=== PATIENT | female | born 1990 | race Caucasian/White ===

== ENCOUNTER 2017-01-25 19:16 | Emergency (ER) | payer MEDICAID ==
[2017-01-25 19:19] VITALS: BMI 25.7
[2017-01-25 19:24] VITALS: BP 88/58; PULSE 97; RESP 19; TEMP 99.2; O2SAT 97
[2017-01-25] MEDS ORDERED: Sodium Chloride 0.9% 1,000 ML IV STA (19:51)
--- NOTE | 2017-01-25 20:03 | ED PDOC ---
Arrival/HPI - General Historian: Patient - History of Present Illness Time/Duration: Other (48 hr.) Symptom Onset: Gradual Symptom Course: Worsening Quality: Aching (headache. ) Severity Level: Mild Context: Home <Josselyn Fox - Last Filed: 01/25/17 22:11> <VitalyglennaJosé Salena - Last Filed: 01/28/17 17:42> - General Chief Complaint: Abnormal Skin Integrity Time Seen by Provider: 01/25/17 19:25 - History of Present Illness Narrative History of Present Illness (Text): 01/25/17 19:56 Patient is a 26 y/o with no significant PMH s/p on December 05, breast feeding and pumping presenting with left breast lump, and pain. Patient states she noticed these symptoms yesterday. Patient reports her nipple is also cracked. Denies bloody discharge. Furthermore, patient states she has been experiencing headache for 2 days, took Tylenol yesterday with some relief. Patient states she had epidural for her delivery, and since then she's been having headache on/off. Patient admits to lightheadedness mostly when she stands up from seating position. Patient denies fever, chills, reports she had nausea yesterday, and had no appetite, thus have not been eating/drinking well. Patient states the nausea has resolved. Denies cp , sob, abdominal pain, dysuria or cough. Denies sick contact. Patient is currently menstruating. (Josselyn Fox) Past Medical History - Provider Review Nursing Documentation Reviewed: Yes - Travel History Have you recently traveled outside [place] w/in the past 3 mons?: No - Past History Past History: Non-Contributing - Infectious Disease Hx of Infectious Diseases: None - Tetanus Immunization Tetanus Immunization: Unknown - Past Medical History Past Medical History: Non-Contributing - Cardiac Hx Cardiac Disorders: No - Pulmonary Hx Respiratory Disorders: Yes Hx Asthma: Yes - Neurological Hx Neurological Disorder: No - HEENT Hx HEENT Disorder: No - Renal Hx Renal Disorder: No - Endocrine/Metabolic Hx Endocrine Disorders: No - Hematological/Oncological Hx Blood Disorders: No - Integumentary Hx Dermatological Disorder: No - Musculoskeletal/Rheumatological Hx Musculoskeletal Disorders: No - Gastrointestinal Hx Gastrointestinal Disorders: No - Genitourinary/Gynecological Hx Genitourinary Disorders: No - Psychiatric Hx Psychophysiologic Disorder: No Hx Substance Use: No - Surgical History Other/Comment: 2 MONTHS AGO - Anesthesia Hx Anesthesia: Yes Hx Anesthesia Reactions: No Hx Malignant Hyperthermia: No - Suicidal Assessment Feels Threatened In Home Enviroment: No <Parris Foxla - Last Filed: 01/25/17 22:11> Family/Social History - Physician Review Nursing Documentation Reviewed: Yes Family/Social History: No Known Family HX Smoking Status: Former Smoker Hx Alcohol Use: No Hx Substance Use: No Hx Substance Use Treatment: No <Josselyn Fox - Last Filed: 01/25/17 22:11> Allergies/Home Meds <Josselyn Fox - Last Filed: 01/25/17 22:11> <José Dean - Last Filed: 01/28/17 17:42> Allergies/Adverse Reactions: Allergies latex Allergy (Verified 01/25/17 19:19) URTICARIA Review of Systems - Review of Systems Constitutional: absent: Fevers Eyes: absent: Vision Changes, Photophobia Respiratory: absent: SOB, Cough, Sputum, Wheezing Cardiovascular: absent: Chest Pain, Palpitations, Edema, Syncope Gastrointestinal: Appetite Changes. absent: Abdominal Pain, Constipation, Diarrhea, Nausea, Vomiting Genitourinary Female: absent: Dysuria, Frequency Musculoskeletal: Other (headache. ). absent: Back Pain, Neck Pain Skin: Normal, Rash Neurological: Headache, Dizziness, Other (lightheadedness.). absent: Focal Weakness Endocrine: Normal Hemo/Lymphatic: Normal Psychiatric: Normal <Parris Foxla - Last Filed: 01/25/17 22:11> Physical Exam Vital Signs Reviewed: Yes Temperature: Afebrile Blood Pressure: Hypotensive Pulse: Regular Respiratory Rate: Normal Appearance: Positive for: Well-Appearing Pain Distress: None Mental Status: Positive for: Alert and Oriented X 3 - Systems Exam Head: Present: Atraumatic, Normocephalic Pupils: Present: PERRL Extroacular Muscles: Present: EOMI Conjunctiva: Present: Other (pale). No: Icteric Mouth: Present: Dry Neck: Present: Normal Range of Motion. No: Meningeal Signs, Paraspinal Tenderness, Lymphadenopathy Respiratory/Chest: Present: Clear to Auscultation, Good Air Exchange. No: Respiratory Distress, Accessory Muscle Use, Wheezes, Rales, Retracting, Rhonchi , Tachypneic Cardiovascular: Present: Regular Rate and Rhythm, Normal S1, S2. No: Murmurs Abdomen: Present: Normal Bowel Sounds. No: Tenderness, Distention Breast/Axillary: Present: Masses (breast at 8 oclock, mobile, tender 0.5 cm mass ), Symmetrical, Tender to Palpation (left breast at 8 oclock.). No: Discoloration, Erythema, Nipple Discharge, Swelling Back: Present: Other (scars ). No: Midline Tenderness Upper Extremity: Present: Normal Inspection. No: Cyanosis, Edema Lower Extremity: Present: Normal Inspection. No: Edema Neurological: Present: GCS=15, CN II-XII Intact, Speech Normal Skin: Present: Warm, Dry, Normal Color, Abrasion (in the back. ). No: Rashes Psychiatric: Present: Alert, Oriented x 3, Normal Insight, Normal Concentration <Josselyn Fox - Last Filed: 01/25/17 22:11> - Systems Exam Breast/Axillary: Present: Other (Belqes scribe present) <José Dean P - Last Filed: 01/28/17 17:42> Vital Signs Temp Pulse Resp BP Pulse Ox 01/25/17 19:23 99.2 F 97 H 19 88/58 L 97 Medical Decision Making Re-evaluation Time: 21:05 Reassessment Condition: Re-examined - Lab Interpretations I have reviewed the lab results: Yes <Josselyn Fox - Last Filed: 01/25/17 22:11> - Lab Interpretations I have reviewed the lab results: Yes <José Dean P - Last Filed: 01/28/17 17:42> ED Course and Treatment: 01/25/17 20:11 26 y/o s/p on 12/05/16 presenting with left breast pain and lump. Patient also has lightheadedness with hypotension. Differentials: orthostatic hypotension, UTI, anemia, sirs/sepsis. Orthostatic vital signs: Lying down: SBP 110/56 Seating 106/53 Standing 83/36 Left breast exam with no signs of mastitis, small plugged breast milk duct. Plan: POC CBC CMP, UA. Tylenol for headache NS bolus and reevaluate. Discussed with Dr Dean. 01/25/17 21:40 Patient reports the Tylenol didn't help, getting toradol ivp. (Josselyn Fox) Patient Seen With Resident: In agreement with resident note which contains more details about the patient. Patient was seen and evaluated with resident. Came up with plan and treatment together. The pts only complaint to me was her breast pain. She did not mention any headache to me. The pt has no erythema, warmth, induration, or fluctuance over the affected breast. there is an approx 1cm palpable tender mass likely a blocked duct. adv continued breast feeding, warm compress, return if worse. unclear why "short of breath" was recorded in vitals section. the pt for me is very well-appearing without any sob. (José Dean) - Lab Interpretations Microbiology Results: Microbiology Results 01/25/17 20:12 Urine,Clean Catch Urine Culture - Final 50-100,000 CFU/ML. MULTIPLE SPECIES. SUGGEST REPEAT SPECIMEM. Lab Results: 01/25/17 20:18 01/25/17 20:18 Lab Results 01/25/17 20:18: Sodium 137, Potassium 3.7, Chloride 101, Carbon Dioxide 28, Anion Gap 12, BUN 15, Creatinine 0.8, Est GFR ( Amer) > 60, Est GFR (Non- Af Amer) > 60, Random Glucose 106, Calcium 9.4, Total Bilirubin 0.4, AST 54 H, ALT 71 H, Alkaline Phosphatase 98, Total Protein 7.6, Albumin 4.3, Globulin 3.3 , Albumin/Globulin Ratio 1.3 01/25/17 20:18: Urine Color Christina, Urine Appearance Clear, Urine pH 5.5, Ur Specific [place] >= 1.030, Urine Protein 30 H, Urine Glucose (UA) Negative, Urine Ketones Negative, Urine Blood Large H, Urine Nitrate Negative, Urine Bilirubin Negative, Urine Urobilinogen 1.0 H, Ur Leukocyte Esterase Trace H, Urine RBC 25 - 30, Urine WBC 5 - 10, Ur Epithelial Cells 6 - 8, Amorphous Sediment Trace, Urine Bacteria Trace 01/25/17 20:18: WBC 7.3 D, RBC 4.01, Hgb 12.2, Hct 36.2, MCV 90.3, MCH 30.4, MCHC 33.7, RDW 14.0, Plt Count 193, MPV 10.0, Gran % 66.8, Lymph % (Auto) 21.0 L , [place] % (Auto) 10.2 H, Eos % (Auto) 1.9, Baso % (Auto) 0.1, Gran # 4.87, Lymph # 1.5, Otero # 0.7 H, Eos # 0.1, Baso # 0.01 - Medication Orders Current Medication Orders: Discontinued Medications Acetaminophen (Tylenol 325mg Tab) 650 mg PO STAT STA Stop: 01/25/17 19:52 Last Admin: 01/25/17 20:20 Dose: 650 mg Sodium Chloride (Sodium Chloride 0.9%) 1,000 mls @ 999 mls/hr IV .Q1H1M STA Stop: 01/25/17 20:51 Last Admin: 01/25/17 20:20 Dose: 999 mls/hr Ketorolac Tromethamine (Toradol) 10 mg IVP STAT STA Stop: 01/25/17 21:33 Last Admin: 01/25/17 22:00 Dose: 15 mg <Josselyn Fox - Last Filed: 01/25/17 22:11> - Scribe Statement The provider has reviewed the documentation as recorded by the Scribe <José Dean - Last Filed: 01/28/17 17:42> - Scribe Statement Jp Marx Provider Scribe Attestation: All medical record entries made by the Scribe were at my direction and personally dictated by me. I have reviewed the chart and agree that the record accurately reflects my personal performance of the history, physical exam, medical decision making, and the department course for this patient. I have also personally directed, reviewed, and agree with the discharge instructions and disposition. (José Dean) Disposition/Present on Arrival - Present on Arrival Any Indicators Present on Arrival: No History of DVT/PE: No History of Uncontrolled Diabetes: No Urinary Catheter: No History of Decub. Ulcer: No History Surgical Site Infection Following: None - Disposition Have Diagnosis and Disposition been Completed?: Yes Disposition Time: 21:35 Patient Plan: Discharge <Josselyn Fox - Last Filed: 01/25/17 22:11> <José Dean - Last Filed: 01/28/17 17:42> - Disposition Diagnosis: Orthostatic hypotension, Headache, breast pain Disposition: HOME/ ROUTINE Condition: IMPROVED Discharge Instructions (ExitCare): and Nipple Soreness (ED), and Plugged Ducts (ED), Hypotension (ED) Additional Instructions: Drink lots of water throughout the day. Eat well balanced nutritious food. Can eat salty food to help with your blood pressure. When you get up from lying or seating position, stand or seat up, wait at list 2 minutes before standing up. Start breast feeding at the site where there is the clog. use heating pad, and massage the area. If you developed redness or if the pain gets worst, please come back to the emergency room.
[2017-01-25 20:28] LABS: ADD MANUAL DIFF? NO
[2017-01-25 20:32] LABS: BASO # 0.01 K/mm3 (0.0-2.0); BASO % 0.1 % (0.0-3.0); EOS # 0.1 (0.0-0.7); EOS % 1.9 % (1.5-5.0); GRAN # 4.87 (1.4-6.5); GRAN % 66.8 % (50.0-68.0); HEMATOCRIT 36.2 % (36.0-48.0); LYMPH # 1.5 (1.2-3.4); MEAN CELL VOLUME 90.3 fL (80.0-105.0); MEAN CORPUSCULAR HEMOGLOBIN 30.4 pg (25.0-35.0); MEAN CORPUSCULAR HGB CONC 33.7 g/dl (31.0-37.0); MONO # 0.7 (0.1-0.6); MONO % 10.2 % (1.0-6.0); PLATELET COUNT 193 10^3/uL (120.0-450.0); WHITE BLOOD COUNT 7.3 10^3/ul (4.5-11.0)
[2017-01-25 20:33] LABS: PH,URINE 5.5 (4.7-8.0); URINE APPEARANCE CLEAR (CLEAR); URINE BILIRUBIN NEGATIVE (NEGATIVE); URINE BLOOD LARGE (NEGATIVE); URINE COLOR AMBER (YELLOW); URINE GLUCOSE (UA) NEGATIVE (NEGATIVE); URINE KETONE NEGATIVE (NEGATIVE); URINE LEUKOCYTE ESTERASE TRACE Leu/uL (NEGATIVE); URINE PROTEIN 30 mg/dL (<30 mg/dL)
[2017-01-25 20:40] LABS: URINE AMORPHOUS SEDIMENT TRACE; URINE BACTERIA TRACE (NEG); URINE RBC 25 - 30 /hpf (0-2)
[2017-01-25 20:44] LABS: ALB/GLOB RATIO 1.3 (1.1-1.8); ALKALINE PHOSPHATASE 98 U/L (38-133); ALT/SGPT 71 U/L (7-56); AST/SGOT 54 U/L (15-39); BILIRUBIN,TOTAL 0.4 mg/dL (0.2-1.3); BLOOD UREA NITROGEN 15 mg/dL (7-21); CALCIUM 9.4 mg/dL (8.4-10.5); CARBON DIOXIDE 28 mmol/L (21-33); CHLORIDE 101 mmol/L (98-107); GFR AFRICAN-AMERICAN > 60; GLUCOSE,RANDOM 106 mg/dL (70-110); POTASSIUM 3.7 mmol/L (3.6-5.0); SODIUM 137 mmol/L (132-148); TOTAL PROTEIN 7.6 g/dL (5.8-8.3)
== END 2017-01-25 22:15 | disposition home or self-care (01) ==
LOC: ED 19:16
DX: O92.29 Other disorders of breast associated with pregnancy and the puerperium (principal); I95.1 Orthostatic hypotension; R51 Headache
CPT/HCPCS: 80053; 81001; 85025; 87086; 99282; J1885; J7040

== ENCOUNTER 2018-11-14 14:44 | Emergency (ER) | payer MEDICAID ==
[2018-11-14 15:00] VITALS: RESP 18
[2018-11-14 15:01] VITALS: BMI 20.9
[2018-11-14] MEDS ORDERED: Albuterol-Ipratrop 3 mg / 0.5 (3 ml) UD IH STA (15:13)
--- NOTE | 2018-11-14 15:19 | ED PDOC ---
Arrival/HPI - General Chief Complaint: ENT Problem Time Seen by Provider: 11/14/18 14:48 Historian: Patient - History of Present Illness Narrative History of Present Illness (Text): 11/14/18 15:20 28 yo F complaining of dry cough the past few days associated with chest tightness and asthma, states that she has been taking her albuterol nebulizer for her asthma with some relief, states that since yesterday morning she started losing her voice and feels that she has laryngitis. Otherwise she reports no fever, chills, shortness of breath, chest pain, nausea, vomiting, recent travel, recent sick contacts. PMD [place] Past Medical History - Past History Past History: Non-Contributing - Infectious Disease Hx of Infectious Diseases: None - Tetanus Immunization Tetanus Immunization: Unknown - Past Medical History Past Medical History: Non-Contributing - Cardiac Hx Cardiac Disorders: No - Pulmonary Hx Respiratory Disorders: Yes Hx Asthma: Yes - Neurological Hx Neurological Disorder: No - HEENT Hx HEENT Disorder: No - Renal Hx Renal Disorder: No - Endocrine/Metabolic Hx Endocrine Disorders: No - Hematological/Oncological Hx Blood Disorders: No - Integumentary Hx Dermatological Disorder: No - Musculoskeletal/Rheumatological Hx Musculoskeletal Disorders: No - Gastrointestinal Hx Gastrointestinal Disorders: No - Genitourinary/Gynecological Hx Genitourinary Disorders: No - Psychiatric Hx Psychophysiologic Disorder: No Hx Substance Use: No - Surgical History Other/Comment: 2 MONTHS AGO - Anesthesia Hx Anesthesia: Yes Hx Anesthesia Reactions: No Hx Malignant Hyperthermia: No - Suicidal Assessment Feels Threatened In Home Enviroment: No Family/Social History Family/Social History: No Known Family HX Smoking Status: Former Smoker Hx Alcohol Use: No Hx Substance Use: No Hx Substance Use Treatment: No Allergies/Home Meds Allergies/Adverse Reactions: Allergies latex Allergy (Verified 01/25/17 19:19) URTICARIA Review of Systems - Review of Systems Constitutional: absent: Fatigue, Fevers ENT: Sore Throat. absent: Rhinorrhea, Sinus Congestion Respiratory: Cough, Wheezing. absent: SOB Cardiovascular: absent: Chest Pain, Palpitations Gastrointestinal: absent: Abdominal Pain, Diarrhea, Nausea, Vomiting Skin: absent: Rash, Skin Lesions Neurological: absent: Headache, Dizziness Physical Exam Vital Signs Temp Pulse Resp BP Pulse Ox 11/14/18 15:00 97.9 F 78 18 128/78 99 Temperature: Afebrile Blood Pressure: Normal Pulse: Regular Respiratory Rate: Normal Appearance: Positive for: Well-Appearing, Non-Toxic, Comfortable Pain Distress: None Mental Status: Positive for: Alert and Oriented X 3 - Systems Exam Head: Present: Atraumatic, Normocephalic Pupils: Present: PERRL Extroacular Muscles: Present: EOMI Conjunctiva: Present: Normal Ears: Present: Normal, NORMAL TM Mouth: Present: Moist Mucous Membranes Pharnyx: Present: Normal. No: ERYTHEMA, EXUDATE Neck: Present: Normal Range of Motion. No: Meningeal Signs, Lymphadenopathy Respiratory/Chest: Present: Clear to Auscultation, Good Air Exchange. No: Respiratory Distress, Accessory Muscle Use Cardiovascular: Present: Regular Rate and Rhythm, Normal S1, S2. No: Murmurs Back: Present: Normal Inspection Upper Extremity: Present: Normal Inspection. No: Cyanosis, Edema Lower Extremity: Present: Normal Inspection. No: Edema Neurological: Present: GCS=15, CN II-XII Intact, Speech Normal Skin: Present: Warm, Dry, Normal Color. No: Rashes Psychiatric: Present: Alert, Oriented x 3, Normal Insight, Normal Concentration Medical Decision Making ED Course and Treatment: 11/14/18 15:15 Patient medicated with prednisone p.o. and 1 DuoNeb. On reevaluation, patient reports no chest pain or SOB. On exam, patient remains awake alert and oriented 3 in no acute distress. Advised to follow up with primary care physician in 1-2 days without fail. Advised to take medication as prescribed. Return to the emergency room at any time for any new or worsening symptoms. Patient states she fully agrees with and understands discharge instructions. States that she agrees with the plan and disposition. Verbalized and repeated discharge instructions and plan. I have given the patient opportunity to ask any additional questions. Disposition/Present on Arrival - Present on Arrival Any Indicators Present on Arrival: No History of DVT/PE: No History of Uncontrolled Diabetes: No Urinary Catheter: No History of Decub. Ulcer: No History Surgical Site Infection Following: None - Disposition Have Diagnosis and Disposition been Completed?: Yes Diagnosis: Laryngitis, Asthma Disposition: HOME/ ROUTINE Disposition Time: 15:15 Patient Plan: Discharge Patient Problems: Current Active Problems Problem Status Onset Asthma Acute Laryngitis Acute Condition: STABLE Discharge Instructions (ExitCare): Laryngitis, Asthma, Adult (DC) Additional Instructions: Thank you for letting us take care of you today. You were treated for laryngitis, asthma. The emergency medical care you received today was directed at your acute symptoms. If you were prescribed any medication, please fill it and take as directed. It may take several days for your symptoms to resolve. Return to the Emergency Department if your symptoms worsen, do not improve, or if you have any other problems. Please contact your doctor in 2 days for re-evaluation and follow up. Bring any paperwork you were given at discharge with you along with any medications you are taking to your follow up visit. Our treatment cannot replace ongoing medical care by a primary care provider (PCP) outside of the emergency department. Thank you for allowing the [facility] team to be part of your care today. Prescriptions: Albuterol HFA [Ventolin HFA 90 mcg/actuation (8 g)] 2 puff IH [id number] #1 puff Albuterol 0.083% [Albuterol Sulfate 3 Ml] 3 ml IH Q4 #100 neb predniSONE [predniSONE Tab] 40 mg PO DAILY #6 tab Forms: [employer] ([employer]), WORK NOTE
[2018-11-14 15:44] VITALS: BP 128/80; PULSE 82; TEMP 98; O2SAT 97
== END 2018-11-14 15:44 | disposition home or self-care (01) ==
LOC: ED 14:44
DX: J04.0 Acute laryngitis (principal); J45.909 Unspecified asthma, uncomplicated; Z87.891 Personal history of nicotine dependence